=== PATIENT | female | born 2005 | race Caucasian/White ===

== ENCOUNTER → 2025-05-12 | Outpatient (REF) | payer OTHER ==
[2025-05-14 12:18] LABS: HPV APTIMA Not Detected (Not Detected)
== END ==
LOC: M SFHCLERA 17:11
PROVIDERS: ATTEND Student in an Organized Health Care Education/Training Program
DX: Z12.4 Encounter for screening for malignant neoplasm of cervix (principal)
CPT/HCPCS: 87624; G0123